=== PATIENT | male | born 1985 | race Caucasian/White ===

== ENCOUNTER 2021-01-06 20:20 | Emergency (ER) | payer SELFPAY ==
[2021-01-06] MEDS ORDERED: Lorazepam 2 MG/ML VIAL ONE (20:35)
[2021-01-06] MEDS ORDERED: Boostrix 0.5 ML (Tdap) VIAL ONE (21:52)
[2021-01-06] MEDS ORDERED: Lidocaine 1% w/Epinephrine 1:100K 20 ML VIAL ONE ×2 (21:52→21:54)
[2021-01-06] MEDS ORDERED: Bacitracin 1 PK ONE (22:29)
[2021-01-06] MEDS ORDERED: Cephalexin 500 MG CAP ONE (22:30)
== END 2021-01-06 23:59 | disposition home or self-care (01) ==
LOC: MADERS 20:20
DX: S66.326A Laceration of extensor muscle, fascia and tendon of right little finger at wrist and hand level, initial encounter (principal); G40.909 Epilepsy, unspecified, not intractable, without status epilepticus; W25.XXXA Contact with sharp glass, initial encounter
CPT/HCPCS: 12002; 90715; J2060